=== PATIENT | female | born 1995 | race Two or more races ===

== ENCOUNTER 2017-12-26 09:19 | Emergency (ER) | payer OTHER ==
[~2017-12-26] VITALS: Ht 165.1 cm; Wt 58.5 kg
[2017-12-26 09:24] VITALS: BP 117/74
--- NOTE | 2017-12-26 10:10 | NUR ---
22/F PRESENT TO ER C/O MED REFILL. PT STATES SHE RAN OUT OF HER ADHD MEDICATION LAST MONTH, ADDERALL 30MG. PT WITH NO COMPLAINTS OR SYMPTOMS. PT DENIES ANY PAIN, CP, SOB, OR ABD PAIN. PT IS AOX4 WITH STEADY GAIT. SKIN WARM/COLOR APPRIOPRIATE FOR AGE/DRY. RR ARE EVEN AND UNLABORED. ALL NEEDS MET AT THIS TIME. AWAITING ER MD ARIZMENDI. WILL CONTINUE TO MONITOR.
[2017-12-26 10:24] VITALS: BP 119/75
--- NOTE | 2017-12-26 10:24 | NUR ---
Patient discharged with v/s stable. Written and verbal after care instructions given and explained. Patient verbalized understanding. Ambulatory with steady gait. All questions addressed prior to discharge. Advised to follow up with PMD. Patient given referral with contact information to [facility], [facility], and [facility].
== END 2017-12-26 10:24 | disposition home or self-care (01) ==
LOC: MED 09:19
DX: F99 Mental disorder, not otherwise specified (principal)
CPT/HCPCS: 99281